=== PATIENT | female | born 1960 | race Caucasian/White ===

== ENCOUNTER → 2018-05-24 | Outpatient (CLI) | payer OTHER ==
--- NOTE | 2018-05-25 20:06 | MAM ---
EXAM DESCRIPTION: 3D Screening BILATERAL : Digital Mammography. CLINICAL HISTORY: 57 years Female ANNUAL SCREENING . No complaints or personal history of breast cancer. Remote family history of breast cancer. Childbirth. Postmenopausal 38 years. No HRT. Prior right breast cyst aspiration benign. Lifetime risk of developing breast cancer (Tyrer-Cuzick model)(%): 8.3. COMPARISON: 2-D digital screening bilateral mammography 05/31/2012. TECHNIQUE: Bilateral CC and MLO projection full-field images, digital tomosynthesis mammographic technique. Bilateral digital 2-D full-field MLO images. CAD not available for tomosynthesis or 2-D images. FINDINGS: The breast parenchymal density pattern is: Scattered areas of fibroglandular density. No skin thickening or nipple retraction. Bilateral solitary benign type calcifications. No new focal, stellate mass or density, focal asymmetry , and no suspicious microcalcifications bilaterally. Stable mammograms compared to prior study. Taking into account, differences in mammographic technique. IMPRESSION: Benign exam. BIRAD CATEGORY: 2 BENIGN FINDINGS. RECOMMENDATIONS: FOLLOW UP: Routine digital bilateral mammographic screening, one year interval from April 2018. Written communication explaining the IMPRESSION and follow-up, will be mailed to the patient and referring health care provider. According to the [employer], yearly mammograms are recommended starting at age 40 and continuing as long as a woman is in good health. Any breast change noted on a breast self-exam should be reported promptly to the patient's healthcare provider. Breast MRI is recommended for women with an approximately 20-25% or greater lifetime risk of breast cancer, including women with a strong family history of breast or ovarian cancer and women who have been treated for Hodgkin's disease. A negative mammographic report should not delay tissue diagnosis in patients with significant clinical history or physical findings. Extremely dense breast tissue limits the sensitivity of digital mammography. Electronically signed by: Kartik Garcia MD 05/25/2018 8:04 PM [employer]
== END ==
LOC: MAMMO 11:26
PROVIDERS: ATTEND Family Medicine
DX: Z12.31 Encounter for screening mammogram for malignant neoplasm of breast (principal)

== ENCOUNTER → 2019-05-23 | Outpatient (CLI) | payer BC | LOC: GMAJ 11:32 | PROVIDERS: ATTEND Family Medicine | DX: E03.9 Hypothyroidism, unspecified (principal); R73.9 Hyperglycemia, unspecified; I10 Essential (primary) hypertension ==

== ENCOUNTER → 2020-05-26 | Outpatient (CLI) | payer BC ==
--- NOTE | 2020-05-26 17:31 | US ---
PROVIDED CLINICAL HISTORY/REASON FOR EXAM: pain in right leg COMPARISON STUDY: None available. TECHNIQUE: Venous duplex examination using B-mode, color flow and spectral Doppler was performed. FINDINGS: Left lower extremity grayscale and Doppler venous ultrasound demonstrates normal luminal compressibility and color flow without evidence of intraluminal thrombus of the common femoral vein, femoral vein, and popliteal vein.. The visualized calf veins are unremarkable. IMPRESSION: No evidence of DVT within venous structures of the left lower extremity. Electronically signed by: Brad Monte MD 05/26/2020 5:29 PM [employer] [employer] [facility]
--- NOTE | 2020-05-27 11:29 | US ---
EXAM DESCRIPTION: Venous,Lower Extremity RT CLINICAL HISTORY: Pain in leg. COMPARISON: None Available. TECHNIQUE: Right lower extremity venous grayscale, spectral, and color Doppler sonographic images. FINDINGS: There is no DVT identified. There is normal color flow observed with good flow augmentation. All deep veins compress normally. IMPRESSION: Negative for DVT Electronically signed by: Maxx Johnson MD 05/27/2020 11:27 AM [facility]
== END ==
LOC: US 09:49
PROVIDERS: ATTEND Family Medicine
DX: M79.604 Pain in right leg (principal); M79.605 Pain in left leg; E03.9 Hypothyroidism, unspecified; I10 Essential (primary) hypertension